=== PATIENT | female | born 1995 | race Two or more races ===

== ENCOUNTER 2016-05-02 23:09 | Inpatient (IN) | payer OTHER ==
[2016-05-02 23:49] LABS: Glucose,Whole Blood 142 mg/dL (75-99)
[2016-05-02 23:52] VITALS: BMI 30.7
[2016-05-02] MEDS ORDERED: OXYTOCIN 10 UNIT/ML 1 ML VIAL IM PRN (23:52)
[2016-05-02] MEDS ORDERED: METHYLERGONOVINE 0.2 MG/ML 1 ML AMP IM PRN (23:52)
[2016-05-02] MEDS ORDERED: LIDOCAINE 1% (PF) 10 MG/ML (30 ML SDV) SQ PRN (23:52)
[2016-05-02] MEDS ORDERED: CARBOPROST TROMETHAMINE 250 MCG/ML 1 ML AMP IM PRN (23:52)
[2016-05-02] MEDS ORDERED: TERBUTALINE 1 MG/ML VIAL SQ PRN (23:52)
[2016-05-03] MEDS ORDERED: AMPICILLIN 2,000 MG in SODIUM CHLORIDE 0.9% 100 ML IVPB STA (00:28)
[2016-05-03] MEDS ORDERED: OXYTOCIN 30 UNITS/500 ML NS 30 UNIT in SALINE 1 500ML.BAG IV SCH ×2 (00:30→07:20)
[2016-05-03] MEDS: LACTATED RINGERS 1,000 ML IV SCH ×2 (00:48→02:43)
[2016-05-03 00:57] LABS: Anisocytosis Slight; Basophils % (A) 0 %; CH 26.8; CHCM 32.6; Eosinophils # (A) 0.1 k/uL (0-0.7); Eosinophils % (A) 1 %; HCT 35.5 % (34.0-46.0); HDW 3.15; HGB 11.5 gm/dL (11.4-16.0); Hypochromasia Slight; Luc % (Auto) 3; Lymphocytes # (A) 1.9 k/uL (1.0-4.8); Lymphocytes % (A) 14 %; MCH 26.8 pg (25.0-35.0); MCHC 32.5 g/dL (31.0-37.0); MCV 82.5 fL (80.0-100.0); Mean Platelet Volume 8.4; Monocytes # (A) 0.9 k/uL (0-1.0); Monocytes % (A) 7 %; Neutrophils # (A) 9.9 k/uL (1.3-7.7); Neutrophils % (A) 75 %; RDW 16.9 % (11.5-15.5); WBC 13.2 k/uL (3.8-10.6); WBC (Perox) 13.34
[2016-05-03 01:42] LABS: Glucose,Whole Blood 95 mg/dL (75-99)
[2016-05-03 02:01] LABS: Hemoglobin A1C 6.4 % (4.2-6.1)
[2016-05-03] MEDS ORDERED: fentaNYL (PF) 50 MCG/ML 5 ML AMP ONE ×2 (02:15→06:29)
[2016-05-03] MEDS ORDERED: BUPIVACAINE (PF) 0.25% 30 ML VIAL ONE ×2 (02:15→06:29)
[2016-05-03] MEDS ORDERED: SODIUM CHLORIDE 0.9% 100 ML BAG ONE ×2 (02:15→06:29)
[2016-05-03] MEDS ORDERED: BUPIVACAINE (PF) 0.25% 25 ML, fentaNYL (PF) 200 MCG in SODIUM CHLORIDE 0.9% 71 ML EPIDURAL ONE (02:45)
[2016-05-03 03:35] LABS: Glucose,Whole Blood 151 mg/dL (75-99)
[2016-05-03] MEDS ORDERED: AMPICILLIN 1,000 MG in SODIUM CHLORIDE 0.9% 50 ML IVPB SCH (05:00)
[2016-05-03 05:14] LABS: Glucose,Whole Blood 135 mg/dL (75-99)
[2016-05-03] MEDS ORDERED: ceFAZolin 2 GM in SODIUM CHLORIDE 0.9% 100 ML IVPB ONE (05:59)
[2016-05-03] MEDS ORDERED: CITRIC ACID-SODIUM CITRATE 15 ML CUP PO ONE (05:59)
--- NOTE | 2016-05-03 06:13 | P.HPOB ---
History of Present Illness H&P Date: 05/03/16 Chief Complaint: Gush of fluid. This patient is a 20-year-old 1 para 0 female estimated date of confinement 05/11/2016 estimated gestational age 38 and 57 weeks gestation who is admitted last evening by Dr. Trent with complaints of gush of fluid at about 11 PM. Patient's care has been complicated by multiple issues including family history of fragile X syndrome and patient is seen maternal medicine and has a very high likelihood that this is affected. Patient also was diagnosed with gestational diabetes and has been followed by them as well. Patient has had polyhydramnios and questionable glucose control that has been diet regulated. Review of Systems Constitutional: Denies chills, Denies fever Cardiovascular: Denies chest pain, Denies shortness of breath Respiratory: Denies cough Gastrointestinal: Reports excessive gas, Denies abdominal pain, Denies diarrhea , Denies nausea, Denies vomiting Genitourinary: Reports as per HPI Menstruation: Reports amenorrhea Musculoskeletal: Denies myalgias Integumentary: Denies pruritus, Denies rash Neurological: Denies numbness, Denies weakness Psychiatric: Denies anxiety, Denies depression Endocrine: Denies fatigue, Denies weight change Past Medical History Past Medical History: No Reported History History of Any Multi-Drug Resistant Organisms: None Reported Past Surgical History: Appendectomy Additional Past Surgical History / Comment(s): appendectomy 07/30/2014 Past Anesthesia/Blood Transfusion Reactions: No Reported Reaction Past Psychological History: No Psychological Hx Reported Smoking Status: Never smoker Past Alcohol Use History: None Reported Past Drug Use History: None Reported - Past Family History Mother Additional Family Medical History / Comment(s): cancer Medications and Allergies Home Medications Medication Instructions Recorded Confirmed Type Iron 18 mg PO DAILY 05/02/16 05/02/16 History Pnv with Ca,No.72/Iron/FA 1 each PO DAILY 05/02/16 05/02/16 History [ Plus Tablet] Allergies Allergy/AdvReac Type Severity Reaction Status Date / Time No Known Allergies Allergy Verified 07/30/14 21:18 Exam - Vital Signs Vital signs: Intake and Output 05/02/16 05/02/16 05/03/16 14:59 22:59 06:59 Other: Weight 83.915 kg Patient Weight 05/03/16 06:59 Weight 83.915 kg - OBG Physical Exam Abdomen: bowel sounds normal, no diffuse tenderness, no bruit present, no guarding noted, no hepatomegaly, no splenomegaly, no mass Vulva: both: normal Vagina: normal moisture, no discharge Cervix: Cervix is 5 cm dilated. Uterus: enlarged Results Result Diagrams: 05/02/16 23:45 Abnormal Lab Results - Last 24 Hours (Table) 05/02/16 05/02/16 05/02/16 Range/Units 23:33 23:45 23:45 WBC 13.2 H (3.8-10.6) k/uL RDW 16.9 H (11.5-15.5) % Neutrophils # 9.9 H (1.3-7.7) k/uL POC Glucose (mg/dL) 142 H (75-99) mg/dL Hemoglobin A1c 6.4 H (4.2-6.1) % 05/03/16 05/03/16 Range/Units 03:33 05:12 WBC (3.8-10.6) k/uL RDW (11.5-15.5) % Neutrophils # (1.3-7.7) k/uL POC Glucose (mg/dL) 151 H 135 H (75-99) mg/dL Hemoglobin A1c (4.2-6.1) % Assessment and Plan (1) Spontaneous rupture of amniotic membranes Narrative/Plan: This is a 20-year-old 1 para 0 female 38-5/7 weeks' gestation with spontaneous rupture membranes. At this time patient's had no significant cervical change is having tachycardia to the 170s. Due to my concerns for status I recommended proceed with section at this time. Patient and mother understand and wish to proceed. She does understand the risks of the surgery including risks of infection, bleeding, possible injury bowel, bladder, vessels, and other organs. All the patient's questions are answered written consent is obtained. Status: Acute (2) Gestational diabetes Status: Acute (3) Carrier of fragile X syndrome Status: Acute
[2016-05-03] MEDS ORDERED: KETOROLAC 30 MG/ML 1 ML VIAL ONE (06:29)
[2016-05-03] MEDS ORDERED: OXYTOCIN 10 UNIT/ML 1 ML VIAL IM ONE (06:29)
[2016-05-03] MEDS ORDERED: HYDROmorphone (PF) 1 MG/ML ONE (06:29)
[2016-05-03] MEDS ORDERED: ONDANSETRON 4 MG/2 ML VIAL ONE (06:29)
[2016-05-03] MEDS ORDERED: KETOROLAC 30 MG/ML 1 ML VIAL IVP PRN (07:20)
[2016-05-03] MEDS ORDERED: LACTATED RINGERS 1,000 ML IV SCH (07:20)
[2016-05-03] MEDS ORDERED: NALOXONE 0.4 MG/ML 1 ML VIAL IV PRN (07:20)
[2016-05-03] MEDS ORDERED: diphenhydrAMINE 50 MG/ML 1 ML VIAL IVP PRN (07:20)
[2016-05-03] MEDS ORDERED: diphenhydrAMINE 25 MG CAP PO PRN (07:20)
[2016-05-03] MEDS ORDERED: METOCLOPRAMIDE 5 MG/ML 2 ML VIAL IVP PRN (07:20)
[2016-05-03] MEDS ORDERED: ACETAMINOPHEN TAB 325 MG TAB PO PRN (07:20)
[2016-05-03] MEDS ORDERED: ONDANSETRON 4 MG/2 ML VIAL IVP PRN (07:20)
[2016-05-03] MEDS ORDERED: ZOLPIDEM 5 MG TAB PO PRN (07:20)
--- NOTE | 2016-05-03 07:27 | P.OP ---
Date of Procedure: 05/03/16 Preoperative Diagnosis: #1: 38-5/7 weeks with spontaneous rupture membranes. #2: tachycardia remote from delivery. 3: Gestational diabetes. #4: Fragile X carrier Postoperative Diagnosis: #1: Same. #2: Occiput posterior presentation. #3: macrosomia. Procedure(s) Performed: Primary low transverse section Anesthesia: epidural Surgeon: Zan Valadez Medical Superintendent #1: Kristen Trent Estimated Blood Loss (ml): 800 Pathology: other (Placenta) Condition: stable Disposition: floor Indications for Procedure: Please see dictated H&P for intimate details of this patient's admission. In brief summary this is a 20-year-old 1 para 0 female 38-5/7 weeks gestation admitted last evening with spontaneous rupture membranes. Patient progresses to only 5 cm dilated and developed some tachycardia to 170s with some decreased variability. Send she is remote from delivery, I recommended proceed at this time with section. Patient does understand the surgery and risks including risks of infection, bleeding, possible injury to bowel, bladder, vessels, and other organs. She understands risk of DVT and pulmonary embolism. All the patient's questions are answered and a written consent is obtained. Operative Findings: This is a vigorous viable male infant Apgars 8 and 8 delivery time is 0646 hours. has spontaneous respirations and good cry and weight 9 lbs. 8 oz. Description of Procedure: This patient has a Beard catheter placed to straight drain. She is subsequently taken to the operating room where her epidural is dosed up for sufficient level of surgery. With this done she has abdominal prep and drape. Scalpels then taken and a Pfannenstiel skin incision is then made. A second scalpel is taken down to the fascia and the fascia scored with a knife. Fascial incision extended bilaterally using the Maguire scissors. Fascia is dissected off the rectus muscles sharply. The rectus muscles are and the peritoneum was identified and entered sharply. The peritoneal incision extended superior and inferior without difficulty. Bladder blade is then placed. Bladder peritoneum was taken off the lower uterine segment. Scalpels then taken and a low transverse uterine incision is made. Using a hemostat I bluntly entered the uterine cavity. There is loss of clear fluid. The infant is found to be straight occiput posterior presentation. The head is getting through the incision with fundal pressure delivery the anterior posterior shoulder and rest this infant's body. This is a vigorous viable male Apgars are 8 and 8 delivery time is 0646 hours. After delivery of the the umbilical cord is doubly clamped and cut and appears to be trivascular. The placenta is then manually extracted intact. Uterus is then externalized and excess membranes were removed from the uterine cavity. Uterine incision is then closed using 0 Vicryl running locked fashion 2 layers excellent hemostasis is noted. The bladder peritoneum was then reapproximated using a 3-0 Vicryl again good hemostasis is noted. Excess fluid is removed from the abdomen and pelvis. Uterus tubes and ovaries appear normal for term gestation. With this done the parietal peritoneum was closed using 0 Vicryl running fashion. Rectus muscles are reapproximated in 0 Vicryl interrupted fashion. The fascia is then closed using 0 PDS. Fascial incision is intact and hemostatic. Subcutaneous tissues and closed using a 3-0 Vicryl. Skin is and closed using joshua. All counts are correct 3. There are no complications. Infant and mother are taken to the birthing suite in satisfactory condition.
[2016-05-03] MEDS: HYDROmorphone PCA 5 MG/25 ML SYRINGE IV PRN ×2 (07:52→21:17)
[2016-05-03] MEDS: ceFAZolin 2 GM in SODIUM CHLORIDE 0.9% 100 ML IVPB SCH ×2 (15:00→22:30)
[2016-05-03] MEDS ORDERED: MEASLES-MUMPS-RUBELLA VACC/PF 12,500 UNIT/0.5 ML VIAL SQ ONE (15:25)
[2016-05-03] MEDS: SENNOSIDES-DOCUSATE SODIUM 1 EACH TAB PO SCH (21:34)
[2016-05-04 05:54] LABS: Anisocytosis Slight; Basophils % (A) 0 %; CH 26.7; CHCM 32.6; Eosinophils % (A) 0 %; HCT 21.7 % (34.0-46.0); Luc # (Auto) 0.32; Luc % (Auto) 2; Lymphocytes # (A) 1.9 k/uL (1.0-4.8); Lymphocytes % (A) 11 %; MCH 27.1 pg (25.0-35.0); MCHC 32.9 g/dL (31.0-37.0); MCV 82.4 fL (80.0-100.0); Mean Platelet Volume 9.2; Monocytes # (A) 0.7 k/uL (0-1.0); Monocytes % (A) 4 %; Neutrophils # (A) 13.8 k/uL (1.3-7.7); Neutrophils % (A) 82 %; RBC 2.63 m/uL (3.80-5.40); RDW 17.4 % (11.5-15.5); WBC 16.8 k/uL (3.8-10.6); WBC (Perox) 18.42
--- NOTE | 2016-05-04 05:59 | P.PNOBGPC ---
Subjective - Subjective Patient reports: Reports appetite normal, Reports voiding normally, Reports pain well controlled, Reports ambulating normally : doing well Objective - Vital Signs Latest vital signs: Vital Signs Temp Pulse Resp BP Pulse Ox 05/04/16 04:00 97.8 F 102 H 16 110/67 98 05/04/16 00:00 97.8 F 101 H 18 110/64 99 05/03/16 20:00 98.1 F 119 H 18 124/76 100 05/03/16 16:00 98.3 F 133 H 16 121/72 05/03/16 12:00 98.7 F 144 H 16 103/51 98 05/03/16 09:20 97 F L 112 H 16 109/55 05/03/16 08:50 129 H 16 112/54 05/03/16 08:20 95 16 117/57 95 05/03/16 08:05 112 H 16 105/68 95 05/03/16 07:50 122 H 16 102/53 97 05/03/16 07:35 113 H 16 97/53 97 05/03/16 07:20 98.6 F 113 H 15 106/48 98 Intake and Output 05/03/16 05/03/16 05/04/16 14:59 22:59 06:59 Intake Total 800 Output Total 200 800 Balance 800 -200 -800 Intake: Oral 800 Output: Urine 200 800 Uretheral (Beard) 150 Other: Voiding Method Indwelling Catheter # Voids 1 # Emeses 1 - Exam Lungs: bilateral: normal Chest: Normal S1, Normal S2 Extremities: Present: normal Abdomen: Present: normal appearance, soft. Absent: distention, tenderness Incision: Present: normal, dry, intact Uterus: Present: normal, firm Assessment and Plan (1) Spontaneous rupture of amniotic membranes Narrative/Plan: Post operative day #1. Patient is resting without new complaints. Vital signs are stable and she is afebrile. Uterus is firm nontender she's having normal lochia. Her incision is intact and dry. Plan today is to discontinue her MED ADMIN, check a CBC, encourage her to ambulate, allow her to shower, and advance her diet. It is evident from her hemoglobin A1c and blood sugars that most likely she was not controlling her blood sugars well during the . Current Visit: Yes Status: Acute Code(s): UPC5080 - SNOMED Code(s): 457582610 (2) Gestational diabetes Current Visit: Yes Status: Acute Code(s): O24.419 - GESTATIONAL DIABETES MELLITUS IN , UNSP CONTROL SNOMED Code(s): 52107649 (3) Carrier of fragile X syndrome Current Visit: Yes Status: Acute Code(s): Z14.8 - GENETIC CARRIER OF OTHER DISEASE SNOMED Code(s): 26588805
[2016-05-04 06:04] LABS: HGB 7.1 gm/dL (11.4-16.0)
[2016-05-04] MEDS: IBUPROFEN 600 MG TAB PO PRN ×2 (08:52→20:58)
[2016-05-04] MEDS: SENNOSIDES-DOCUSATE SODIUM 1 EACH TAB PO SCH ×3 (08:53→20:57)
[2016-05-04] MEDS ORDERED: KETOROLAC 30 MG/ML 1 ML VIAL IVP STA (13:52)
[2016-05-04] MEDS ORDERED: Acetaminophen-Codeine 300-30mg TAB PO PRN (14:32)
[2016-05-04] MEDS: IRON AG/C/B12/CA/SUC.ACID/STOM 1 EACH TAB PO SCH (17:15)
--- NOTE | 2016-05-05 05:43 | P.PNOBGPC ---
Subjective - Subjective Patient reports: Reports appetite normal, Reports voiding normally, Reports pain well controlled, Reports ambulating normally : in NICU Objective - Vital Signs Latest vital signs: Vital Signs Temp Pulse Resp BP Pulse Ox 05/04/16 23:08 99.1 F 122 H 16 118/72 98 05/04/16 15:35 98.6 F 68 17 127/72 05/04/16 08:00 98.0 F 126 H 16 115/62 98 Intake and Output 05/04/16 05/04/16 05/05/16 14:59 22:59 06:59 Other: # Voids 1 2 - Exam Lungs: bilateral: normal Chest: Normal S1, Normal S2 Extremities: Present: normal Abdomen: Present: normal appearance, soft. Absent: distention, tenderness Incision: Present: normal, dry, intact Uterus: Present: normal, firm - Labs Labs: Abnormal Lab Results - Last 24 Hours (Table) 05/04/16 Range/Units 05:39 WBC 16.8 H (3.8-10.6) k/uL RBC 2.63 L (3.80-5.40) m/uL Hgb 7.1 L D (11.4-16.0) gm/dL Hct 21.7 L (34.0-46.0) % RDW 17.4 H (11.5-15.5) % Neutrophils # 13.8 H (1.3-7.7) k/uL Assessment and Plan (1) Spontaneous rupture of amniotic membranes Narrative/Plan: Post operative day #2. Patient is resting without new complaints. Vital signs are stable and she is afebrile. CBC yesterday showed a hemoglobin of 7.1 which was expected. Patient's hemoglobin A1c came back at 6.4 as well and I did discuss my concerns about her glucose control during the she acknowledged that indeed she did have some abnormal glucoses although her log did not reflect this. Plan today is to continue routine postoperative care. I am going to repeat a CBC. Encourage ambulation. Current Visit: Yes Status: Acute Code(s): EDX9587 - SNOMED Code(s): 386186907 (2) Gestational diabetes Current Visit: Yes Status: Acute Code(s): O24.419 - GESTATIONAL DIABETES MELLITUS IN , UNSP CONTROL SNOMED Code(s): 15423148 (3) Carrier of fragile X syndrome Current Visit: Yes Status: Acute Code(s): Z14.8 - GENETIC CARRIER OF OTHER DISEASE SNOMED Code(s): 25656965
[2016-05-05 06:07] LABS: Anisocytosis Slight; Basophils # (A) 0.1 k/uL (0-0.2); Basophils % (A) 0 %; CH 26.8; CHCM 32.5; Eosinophils # (A) 0.1 k/uL (0-0.7); Eosinophils % (A) 1 %; HCT 22.3 % (34.0-46.0); HDW 3.07; HGB 7.2 gm/dL (11.4-16.0); Luc # (Auto) 0.43; Luc % (Auto) 3; Lymphocytes # (A) 2.2 k/uL (1.0-4.8); Lymphocytes % (A) 13 %; MCH 26.6 pg (25.0-35.0); MCHC 32.1 g/dL (31.0-37.0); MCV 82.8 fL (80.0-100.0); Monocytes # (A) 0.8 k/uL (0-1.0); Monocytes % (A) 5 %; Neutrophils # (A) 13.1 k/uL (1.3-7.7); Neutrophils % (A) 79 %; RBC 2.69 m/uL (3.80-5.40); RDW 17.5 % (11.5-15.5); WBC 16.7 k/uL (3.8-10.6); WBC (Perox) 16.98
[2016-05-05] MEDS: IBUPROFEN 600 MG TAB PO PRN ×2 (08:08→20:10)
[2016-05-05] MEDS: SENNOSIDES-DOCUSATE SODIUM 1 EACH TAB PO SCH ×2 (08:09→20:42)
[2016-05-05] MEDS: Acetaminophen-Codeine 300-30mg TAB PO PRN (10:27)
[2016-05-05] MEDS: IRON AG/C/B12/CA/SUC.ACID/STOM 1 EACH TAB PO SCH ×2 (16:44→20:42)
[2016-05-06] MEDS: Acetaminophen-Codeine 300-30mg TAB PO PRN (05:53)
[2016-05-06] MEDS: SENNOSIDES-DOCUSATE SODIUM 1 EACH TAB PO SCH ×2 (08:14→21:18)
--- NOTE | 2016-05-06 08:52 | P.PNOBGPC ---
Subjective - Subjective Patient reports: Reports appetite normal, Reports voiding normally, Reports pain well controlled, Reports ambulating normally [place]: doing well, in NICU Objective - Vital Signs Latest vital signs: Vital Signs Temp Pulse Resp BP Pulse Ox 05/06/16 04:00 98.7 F 127 H 18 130/61 99 05/05/16 20:37 98.7 F 122 H 18 128/68 98 05/05/16 15:35 98.2 F 106 H 16 114/69 Intake and Output 05/05/16 05/06/16 05/06/16 22:59 06:59 14:59 Other: # Voids 1 1 # Bowel Movements 2 - Exam Lungs: bilateral: normal Chest: Normal S1, Normal S2 Extremities: Present: normal Abdomen: Present: normal appearance, soft. Absent: distention, tenderness Incision: Present: normal, dry, intact Uterus: Present: normal, firm Assessment and Plan (1) Spontaneous rupture of amniotic membranes Narrative/Plan: This is postoperative day #3. Patient is resting without complaints. Vital signs are stable and she is afebrile. Uterus is firm nontender and her incision is intact and dry. Patient's hemoglobin is stable. Patient's baby is still in special care and therefore wishes to stay another day. Plan is to continue routine postoperative care and we'll discharge home tomorrow. Current Visit: Yes Status: Acute Code(s): QBD5535 - SNOMED Code(s): 909568428 (2) Gestational diabetes Current Visit: Yes Status: Acute Code(s): O24.419 - GESTATIONAL DIABETES MELLITUS IN , UNSP CONTROL SNOMED Code(s): 03471955 (3) Carrier of fragile X syndrome Current Visit: Yes Status: Acute Code(s): Z14.8 - GENETIC CARRIER OF OTHER DISEASE SNOMED Code(s): 75774673
[2016-05-06] MEDS: IRON AG/C/B12/CA/SUC.ACID/STOM 1 EACH TAB PO SCH (15:02)
[2016-05-06] MEDS: IBUPROFEN 600 MG TAB PO PRN (21:16)
--- NOTE | 2016-05-07 07:00 | P.PNOBGPC ---
Subjective - Subjective Patient reports: Reports appetite normal, Reports voiding normally, Reports pain well controlled, Reports ambulating normally : doing well, in NICU Objective - Vital Signs Latest vital signs: Vital Signs Temp Pulse Resp BP Pulse Ox 05/07/16 00:00 97.6 F 96 16 117/68 98 05/06/16 16:00 98.4 F 130 H 20 122/67 97 05/06/16 08:00 98.6 F 116 H 20 111/61 95 - Exam Lungs: bilateral: normal Chest: Normal S1, Normal S2 Extremities: Present: normal Abdomen: Present: normal appearance, soft. Absent: distention, tenderness Incision: Present: normal, dry, intact Uterus: Present: normal, firm Assessment and Plan (1) Spontaneous rupture of amniotic membranes Narrative/Plan: Postoperative day #4. Patient is resting without complaints. Vital signs are stable she is afebrile. Incision is intact and dry. My impression is a normal postoperative course. Plan is discharge home today and follow up with me in 1 week. Current Visit: Yes Status: Acute Code(s): IOU8819 - SNOMED Code(s): 124437675 (2) Gestational diabetes Current Visit: Yes Status: Acute Code(s): O24.419 - GESTATIONAL DIABETES MELLITUS IN , UNSP CONTROL SNOMED Code(s): 97482149 (3) Carrier of fragile X syndrome Current Visit: Yes Status: Acute Code(s): Z14.8 - GENETIC CARRIER OF OTHER DISEASE SNOMED Code(s): 34823860
--- NOTE | 2016-05-07 07:01 | P.DS ---
Providers Date of admission: 05/02/16 23:15 Expected date of discharge: 05/07/16 Attending physician: Zan Valadez Primary care physician: Stated None - Discharge Diagnosis(es) (1) Spontaneous rupture of amniotic membranes Current Visit: Yes Status: Acute (2) Gestational diabetes Current Visit: Yes Status: Acute (3) Carrier of fragile X syndrome Current Visit: Yes Status: Acute Hospital Course: Please see dictated H&P for intimate details of this patient's admission. Brief summary this is a pleasant 20-year-old 1 para 0 female 38-5/7 weeks gestation admitted to labor and delivery with spontaneous rupture membranes. Patient's subsequent undergoes a primary low transverse section for viable male infant please see dictated operative note. Postoperatively the patient does have some postoperative anemia however this response to iron therapy. By postoperative day #4 she is felt be stable for discharge home follow up with me in 1 week. Procedures: Primary low transverse section Patient Condition at Discharge: Good Plan - Discharge Summary New Discharge Prescriptions: Acetaminophen-Codeine 300-30mg [Tylenol w/codeine #3] 1 - 2 each PO Q4HR PRN # 40 tab PRN Reason: MODERATE Pain Ibuprofen [Motrin] 600 mg PO Q6HR PRN #40 tab PRN Reason: Mild Pain Or Fever >= 100.5 Iron Ag/C/B12/Ca/Suc.acid/Stom [Chromagen LF] 1 each PO DAILY #30 tab Discharge Medication List Iron 18 mg PO DAILY 05/02/16 [History] Pnv with Ca,No.72/Iron/FA [ Plus Tablet] 1 each PO DAILY 05/02/16 [ History] Acetaminophen-Codeine 300-30mg [Tylenol w/codeine #3] 1 - 2 each PO Q4HR PRN # 40 tab 05/07/16 [Rx] Ibuprofen [Motrin] 600 mg PO Q6HR PRN #40 tab 05/07/16 [Rx] Iron Ag/C/B12/Ca/Suc.acid/Stom [Chromagen LF] 1 each PO DAILY #30 tab 05/07/16 [ Rx] Follow up Appointment(s)/Referral(s): Zan Valadez MD [STAFF PHYSICIAN] - 05/10/16 1:30 pm (Patient also has a appointment on June 22 a 9:15 am.) Patient Instructions/Handouts: (DC) Activity/Diet/Wound Care/Special Instructions: No intercourse or anything per vagina for 6 weeks. No strenous activity or lifting for 6 weeks. Please call if any fever, chills, excessive vaginal bleeding and/or abdominal pain. Discharge Disposition: HOME SELF-CARE
[2016-05-07] MEDS: Acetaminophen-Codeine 300-30mg TAB PO PRN (08:44)
[2016-05-07] MEDS: IRON AG/C/B12/CA/SUC.ACID/STOM 1 EACH TAB PO SCH (08:45)
[2016-05-07] MEDS: SENNOSIDES-DOCUSATE SODIUM 1 EACH TAB PO SCH (08:45)
[2016-05-07 08:49] VITALS: BP 120/72; PULSE 104; RESP 20; TEMP 98.4
== END 2016-05-07 15:05 | disposition home or self-care (01) | DRG 766 ==
LOC: FBPOP 23:09 → 4FBP 23:15
PROVIDERS: ADMIT Obstetrics & Gynecology; ATTEND Obstetrics & Gynecology
PROC: 10D00Z1 Extraction of Products of Conception, Low, Open Approach (ICD-10-PCS; principal; 2016-05-02)
DX: O76 Abnormality in fetal heart rate and rhythm complicating labor and delivery (principal); O24.420 Gestational diabetes mellitus in childbirth, diet controlled; O90.81 Anemia of the puerperium; O36.63X0 Maternal care for excessive fetal growth, third trimester, not applicable or unspecified; Z3A.38 38 weeks gestation of pregnancy; Z37.0 Single live birth; Z14.8 Genetic carrier of other disease; Q99.2 Fragile X chromosome
CPT/HCPCS: 83036; 85025; 86850; 86900; 86901; 88307; 90707

== ENCOUNTER 2018-08-31 03:04 | Emergency (ER) | payer OTHER ==
[2018-08-31] MEDS ORDERED: MORPHINE SULFATE 4 MG/ML SYRINGE IM STA (03:26)
--- NOTE | 2018-08-31 04:12 | ED ---
Fall HPI - General Chief Complaint: Fall Stated Complaint: Fall/Wrist Pain Time Seen by Provider: 08/31/18 03:19 Source: patient, family Mode of arrival: ambulatory - History of Present Illness Initial Comments: 23-year-old female patient presents to the emergency department today for evaluation of left elbow and wrist pain after experiencing a fall. Patient states around 1900 this evening she was walking her dog when her dog tripped her up and she fell backwards landing on the arm. Patient denies hitting her head or losing consciousness. Denies any other injuries. Patient states she has been having significant pain to the left elbow and difficulty with range of motion since the incident. Patient states she did take ibuprofen with little relief of her pain. She denies any previous injury to the elbow. Patient denies any headache, neck pain, back pain, chest pain, shortness of breath, dizziness, weakness, abdominal pain, nausea, vomiting, or difficulties with bowel movements or urination. - Related Data Home Medications Medication Instructions Recorded Confirmed Norethindrone AC-Eth Estradiol 1 tab PO DAILY 08/31/18 08/31/18 [Loestrin 21 1-20 Tablet] Previous Rx's Medication Instructions Recorded Ibuprofen [Motrin] 600 mg PO Q6HR PRN #40 tab 05/07/16 Hydrocodone/Acetaminophen [Prichard 1 tab PO Q6HR PRN #12 tab 08/31/18 5-325] Allergies Allergy/AdvReac Type Severity Reaction Status Date / Time No Known Allergies Allergy Verified 07/30/14 21:18 Review of Systems ROS Statement: Those systems with pertinent positive or pertinent negative responses have been documented in the HPI. ROS Other: All systems not noted in ROS Statement are negative. Past Medical History Past Medical History: No Reported History History of Any Multi-Drug Resistant Organisms: None Reported Past Surgical History: Appendectomy, Section Additional Past Surgical History / Comment(s): appendectomy 07/30/2014 2017 Past Anesthesia/Blood Transfusion Reactions: No Reported Reaction Past Psychological History: No Psychological Hx Reported Smoking Status: Never smoker Past Alcohol Use History: None Reported Past Drug Use History: None Reported - Past Family History Mother Additional Family Medical History / Comment(s): cancer General Exam Limitations: no limitations General appearance: alert, in no apparent distress, other (This is a well- developed, well-nourished adult female patient in no acute distress. Vital signs upon presentation are temperature 97.8F, pulse 133, respirations 19, blood pressure 117/80, pulse ox 99% on room air.) Eye exam: Present: normal appearance, PERRL, EOMI. Absent: scleral icterus, conjunctival injection, periorbital swelling ENT exam: Present: normal exam, normal oropharynx, mucous membranes moist Respiratory exam: Present: normal lung sounds bilaterally. Absent: respiratory distress, wheezes, rales, rhonchi, stridor Cardiovascular Exam: Present: regular rate, normal rhythm, normal heart sounds. Absent: systolic murmur, diastolic murmur, rubs, gallop, clicks GI/Abdominal exam: Present: soft, normal bowel sounds. Absent: distended, tende rness, guarding, rebound, rigid Extremities exam: Present: full ROM, tenderness (Left wrist, left elbow), normal capillary refill, other (Patient exhibits soft tissue swelling over the posterior left elbow. Skin to the left upper extremity is pink, warm, and dry. Cap refills less than 3 seconds. Radial pulses 2+ and equal bilaterally). Absent: normal inspection, pedal edema, joint swelling, calf tenderness Neurological exam: Present: alert, oriented X3, CN II-XII intact Psychiatric exam: Present: normal affect, normal mood Skin exam: Present: warm, dry, intact, normal color. Absent: rash Course Vital Signs 08/31/18 03:05 Temperature 97.8 F Pulse Rate 133 H Respiratory 19 Rate Blood Pressure 117/80 O2 Sat by Pulse 99 Oximetry Procedures - Orthopedic Splinting/Casting Injury #1 Side: left Upper Extremity Injury Location: long arm Upper Extremity Immobilizer: posterior splint, Jv wrap Additional Comments: Well padded with web roll. Neurovascular status intact after splint application. Medical Decision Making - Medical Decision Making 23-year-old female patient presents to the emergency department today for evaluation of left elbow injury after experiencing a fall at home. Physical examination did reveal soft tissue swelling over the dorsal aspect of the left elbow. Neurovascular status is intact. Radial pulses 2+ and equal bilaterally. X-ray of the left wrist was obtained and showed no evidence of acute fracture. X-ray of the left elbow did show a mildly displaced radial head fracture with a large joint effusion. Patient was placed in an OCL splint. Neurovascular status intact after splint application. She is given a sling. She is instructed to leave splint in place until follow-up with orthopedics. She is given pain medication for symptom management. She is instructed to follow-up with denial resolution specialist for recheck in 1-2 days. Return parameters discussed in detail. She verbalizes understanding and agrees with this plan. - Radiology Data Radiology results: report reviewed, image reviewed 3 views of the left wrist are obtained. Report is reviewed in its entirety. Impression by Dr. Santos shows no acute findings. Left elbow x-rays obtained. Report was reviewed in its entirety. Impression by Dr. Watkins shows large joint effusion. Slightly displaced radial head/neck fracture. Disposition Clinical Impression: Left radial head fracture Disposition: HOME SELF-CARE Condition: Good Instructions (If sedation given, give patient instructions): Elbow Fracture (ED), Splint Care (ED) Additional Instructions: Ice to the left elbow 20 minutes at a time at least 4 times daily. Take medications as directed. Do not remove splint until follow-up with denial resolution specialist. Return to the emergency department for any new, worsening, or concerning symptoms. Prescriptions: Hydrocodone/Acetaminophen [Prichard 5-325] 1 tab PO Q6HR PRN #12 tab PRN Reason: Pain Is patient prescribed a controlled substance at d/c from ED?: Yes When asked, does pt state using other controlled substances?: No If prescribed controlled substance>3 days was MAPS reviewed?: Prescribed <3 Days If opioid is for acute pain is fill amount 7 days or less?: Yes Referrals: Miguel Angel Flores DO [Medical Doctor] - 1-2 days Time of Disposition: 04:36
--- NOTE | 2018-08-31 04:18 | XR ---
EXAM: XR Left Wrist Complete, 3 or More Views CLINICAL HISTORY: ITS.REASON XR Reason: Pain TECHNIQUE: Frontal, lateral and oblique views of the left wrist. COMPARISON: No relevant prior studies available. FINDINGS: Bones/joints: No acute fracture. No dislocation. Soft tissues: Unremarkable. No radiopaque foreign body. IMPRESSION: No acute findings.
--- NOTE | 2018-08-31 04:20 | XR ---
EXAM: XR Left Elbow Complete, 3 or More Views CLINICAL HISTORY: ITS.REASON XR Reason: Pain TECHNIQUE: Frontal, lateral and oblique views of the left elbow. COMPARISON: No relevant prior studies available. FINDINGS: Bones/joints: Large joint effusion. Slightly displaced radial head/neck fracture. No dislocation. Soft tissues: Unremarkable. IMPRESSION: 1. Large joint effusion. 2. Slightly displaced radial head/neck fracture.
[2018-08-31] MEDS ORDERED: HYDROcodone/APAP 5-325MG 1 EACH TAB PO STA (04:33)
[2018-08-31 04:44] VITALS: BP 121/83; PULSE 98; RESP 18; TEMP 98
== END 2018-08-31 05:16 | disposition home or self-care (01) ==
LOC: EC 03:04
DX: S52.122A Displaced fracture of head of left radius, initial encounter for closed fracture (principal); Z79.3 Long term (current) use of hormonal contraceptives; W01.0XXA Fall on same level from slipping, tripping and stumbling without subsequent striking against object, initial encounter; Y93.K1 Activity, walking an animal
CPT/HCPCS: 73080; 73110; 99283; 29105; 96372; J2270

== ENCOUNTER 2018-09-16 15:07 | Emergency (ER) | payer OTHER ==
[2018-09-16 15:49] VITALS: BP 124/88; PULSE 94; RESP 16; TEMP 97.8
--- NOTE | 2018-09-16 16:12 | ED ---
Fall HPI - General Chief Complaint: Fall Stated Complaint: Ankle Injury Time Seen by Provider: 09/16/18 15:53 Source: patient Mode of arrival: wheelchair - History of Present Illness Initial Comments: 23yo female presenting for fall ar 2PM today. Patient was attempting to catch her cat from running out the door when she injudged a step off and fell onto the porch twisting the right ankle. Patient denies head, neck, back, arm, abdomen injury. Denies hip or knee pain. Patient states the right ankle is swollen and painful to ROM. Remaining ROS (-), denies numbness, tingling, loss of sensation of pallor, denies dislocation. - Related Data Home Medications Medication Instructions Recorded Confirmed Norethindrone AC-Eth Estradiol 1 tab PO DAILY 08/31/18 08/31/18 [Loestrin 21 1-20 Tablet] Previous Rx's Medication Instructions Recorded Ibuprofen [Motrin] 600 mg PO Q6HR PRN #40 tab 05/07/16 Hydrocodone/Acetaminophen [[place] 1 tab PO Q6HR PRN #12 tab 08/31/18 5-325] Ibuprofen 800 mg PO Q8H PRN 7 Days #21 tablet 09/16/18 Allergies Allergy/AdvReac Type Severity Reaction Status Date / Time No Known Allergies Allergy Verified 09/16/18 15:49 Review of Systems ROS Statement: Those systems with pertinent positive or pertinent negative responses have been documented in the HPI. ROS Other: All systems not noted in ROS Statement are negative. Past Medical History Past Medical History: No Reported History History of Any Multi-Drug Resistant Organisms: None Reported Past Surgical History: Appendectomy, Section Additional Past Surgical History / Comment(s): appendectomy 07/30/2014 2017 Past Anesthesia/Blood Transfusion Reactions: No Reported Reaction Past Psychological History: No Psychological Hx Reported Smoking Status: Never smoker Past Alcohol Use History: None Reported Past Drug Use History: None Reported - Past Family History Mother Additional Family Medical History / Comment(s): cancer General Exam - General Exam Comments Initial Comments: General: The patient is awake and alert, in no distress, and does not appear acutely ill. Eye: Pupils are equal, round and reactive to light, extra-ocular movements are intact. No nystagmus. There is normal conjunctiva bilaterally. No signs of icterus. Ears, nose, mouth and throat: There are moist mucous membranes and no oral lesions. Neck: The neck is supple, there is no tenderness or JVD. Cardiovascular: There is a regular rate and rhythm. No murmur, rub or gallop is appreciated. Respiratory: Lungs are clear to auscultation, respirations are non-labored, breath sounds are equal. No wheezes, stridor, rales, or rhonchi. Musculoskeletal: Upon inspection of the ankles bilaterally or soft tissue swelling over the lateral malleolus of the right ankle. Normal ROM in the knee, ankles and feet b/l. Pain wit ROM of right ankle. Strength 5/5. Sensation intact proximal and distal to injury site. DP pulses equal bilaterally 2+. Neurological: A&O x 3. CN II-XII intact, There are no obvious motor or sensory deficits. Coordination appears grossly intact. Speech is normal. Skin: Skin is warm and dry and no rashes or lesions are noted. Psychiatric: Cooperative, appropriate mood & affect, normal judgment. Limitations: no limitations Course Vital Signs 09/16/18 15:47 Temperature 97.8 F Pulse Rate 94 Respiratory 16 Rate Blood Pressure 124/88 O2 Sat by Pulse 96 Oximetry Medical Decision Making - Medical Decision Making 23-year-old female presented for right ankle pain. Evidence of soft tissue swelling. History concerning for sprain. Neurovascularly intact. XR revealed no acute osseous injury. Patient placed in [facility]'s. For ankle support with concern for sprain. Patient is to follow-up primary care provider if symptoms persist she is to follow up with orthopedic surgery. Recommend patient use crutches for comfort. Rest ice elevate and compress ankle. Take ibuprofen for pain. Return parameters were discussed patient verbalized understanding. Patient was discharged. Will Disposition Clinical Impression: Right ankle sprain, Right ankle pain Disposition: HOME SELF-CARE Condition: Good Instructions (If sedation given, give patient instructions): Ankle Sprain (ED), R.I.C.E. Treatment (ED) Additional Instructions: Please use medication as discussed. Please follow-up with family doctor in the next 2 days, f/u as scheduled with Argelia Calderón on Sunday. Use crutches for comfort. Please return to emergency room if the symptoms increase or worsen or for any other concerns. Prescriptions: Ibuprofen 800 mg PO Q8H PRN 7 Days #21 tablet PRN Reason: Pain Is patient prescribed a controlled substance at d/c from ED?: No Referrals: None,Stated [Primary Care Provider] - 1-2 days Time of Disposition: 16:23
--- NOTE | 2018-09-16 16:26 | XR ---
EXAMINATION TYPE: XR ankle complete RT DATE OF EXAM: 09/16/2018 COMPARISON: None HISTORY: Pain following fall TECHNIQUE: Three-view right ankle FINDINGS: There is soft tissue swelling over the lateral malleolus. The ankle mortise is intact. No a cute displaced fractures are evident. Follow-up studies can be performed 7-10 days from acute trauma for continued pain. IMPRESSION: 1. Soft tissue swelling lateral malleolus. 2. No acute fractures.
== END 2018-09-16 16:44 | disposition home or self-care (01) ==
LOC: EC 15:07
DX: S93.401A Sprain of unspecified ligament of right ankle, initial encounter (principal); W19.XXXA Unspecified fall, initial encounter
CPT/HCPCS: 73610; 99283; 29515; L4350

== ENCOUNTER → 2022-01-09 | Outpatient (CLI) | payer OTHER ==
--- NOTE | 2022-01-10 10:12 | US ---
EXAMINATION TYPE: Transabdominal DATE OF EXAM: 01/09/2022 4:01 PM COMPARISON: NONE CLINICAL HISTORY: Z39.89 OTHER SPECIFIED SCREENING. EXAM PERFORMED: Transabdominal (TA) EXAM MEASUREMENTS: GESTATIONAL AGE / DATING Physician Established: Not yet established Dates by LMP: (10 weeks/4 days) EDC: 08-03-22 Dates by First Scan: No previous this is first scan Dates by Current Scan for: (11 weeks/1 days) EDC: 07-30-22 MATERNAL ANATOMY Uterus: 14.9 x 6.2 x 3.1cm Fibroid measuring 4.0 x 2.8 x 3.6cm Right Ovary: 3.1 x 1.7 x 2.2cm Left Ovary: 3.1 x 2.0 2.1cm Post CDS / Adnexa: wnl Presence of free fluid: no Presence of probable subchorionic bleed measuring 1.2 x 0.5 x 1.3cm GESTATION / SURVEY CRL: 4.4cm (11 weeks/1 days) Yolk Sac (normal less than 6mm): not visualized Heart Rate: 155 bpm Rhythm: Normal IUP: Viable IUP Age Appropriate Anatomy Cord Insertion: Visualized Limbs: Visualized Calvarium: Visualized Date of LMP: 10-27-21 Beta HcG (if available): Not available at this time IMPRESSION: 1. Single intrauterine gestation estimated at 11 weeks 1 day gestation based on crown-rump length. Ca rdiac activity measures 155 bpm. 2. Subchorionic hemorrhage. 3. Uterine fibroid anterior fundus of the uterus.
== END | disposition home or self-care (01) ==
LOC: RADUSWWP 15:30
PROVIDERS: ATTEND Obstetrics & Gynecology
DX: O20.8 Other hemorrhage in early pregnancy (principal); O34.11 Maternal care for benign tumor of corpus uteri, first trimester; Z3A.11 11 weeks gestation of pregnancy
CPT/HCPCS: 76801

== ENCOUNTER 2022-07-28 05:47 | Inpatient (IN) | payer OTHER ==
--- NOTE | 2022-07-27 06:48 | P.HPOB ---
History of Present Illness H&P Date: 07/27/22 Chief Complaint: Repeat section This patient is a pleasant 26-year-old 2 para 1 female estimated date of confinement 08/03/2022 estimated gestational age 39 and one sevenths weeks who presents to labor and delivery requesting repeat section. Patient had a previous section for nonreassuring heart tones and has counseled as to route of delivery and requests section for this . Patient's care is complicated by the patient being a carrier of Fragile X. She was referred to maternal- medicine and did have normal cell free DNA (46XX). Patient did have a previous child that is male and has the chromosomes well. Patient has a history of gestational diabetes did fail her 1 hour Glucola. She was managed by maternal medicine third trimester the decided she was not a gestational diabetic. Patient's been watched by maternal medicine and myself with testing. Most recent ultrasound per maternal medicine did show some right renal pelvis dilation that was mild of 7.7 mm. No other abnormalities were noted. Review of Systems Genitourinary: Reports Menstruation: Reports amenorrhea Past Medical History Past Medical History: No Reported History History of Any Multi-Drug Resistant Organisms: None Reported Past Surgical History: Appendectomy, Section Additional Past Surgical History / Comment(s): appendectomy 07/30/2014 2017 Past Anesthesia/Blood Transfusion Reactions: No Reported Reaction Past Psychological History: No Psychological Hx Reported Smoking Status: Never smoker Past Alcohol Use History: None Reported Past Drug Use History: None Reported - Past Family History Mother Additional Family Medical History / Comment(s): cancer Medications and Allergies Allergies Allergy/AdvReac Type Severity Reaction Status Date / Time No Known Allergies Allergy Verified 09/16/18 15:49 Exam - OBG Physical Exam Abdomen: bowel sounds normal, no diffuse tenderness, no bruit present, no guarding noted, no hepatomegaly, no splenomegaly, no mass Vulva: both: normal Vagina: normal moisture, no discharge Cervix: no lesion, no discharge Uterus: enlarged Results labs show she is B positive, rubella immune, RPR nonreactive, hepatitis B nonreactive HIV is nonreactive, Glucola was 176, group B strep was negative, ultrasounds as above. Assessment and Plan Assessment: This is a pleasant 26-year-old 2 para para 1 female 39 and one sevenths weeks gestation with previous section desires repeat. Patient also is a carrier for fragile X syndrome. Will plan is repeat low transverse section. Patient understands this surgery and risks and risks of infection, bleeding, possible injury bowel, bladder, vessels, and other organs. All the patient's questions are answered and a written consent is obtained. (1) 39 weeks gestation of Status: Acute Code(s): Z3A.39 - 39 WEEKS GESTATION OF SNOMED Code(s): 46140494 (2) Previous delivery affecting Status: Acute Code(s): O34.219 - MATERNAL CARE FOR UNSP TYPE SCAR FROM PREVIOUS DEL SNOMED Code(s): 830180152 (3) Carrier of fragile X syndrome Status: Acute Code(s): Z14.8 - GENETIC CARRIER OF OTHER DISEASE SNOMED Code(s): 69858515
[2022-07-28] MEDS ORDERED: CARBOPROST TROMETHAMINE 250 MCG/ML 1 ML AMP IM PRN (05:53)
[2022-07-28] MEDS ORDERED: OXYTOCIN 10 UNIT/ML 1 ML VIAL IM PRN (05:53)
[2022-07-28] MEDS ORDERED: LACTATED RINGERS 1,000 ML IV ONE (05:53)
[2022-07-28] MEDS ORDERED: CITRIC ACID-SODIUM CITRATE 15 ML CUP PO ONE (05:53)
[2022-07-28] MEDS ORDERED: METHYLERGONOVINE 0.2 MG/ML 1 ML AMP IM PRN (05:53)
[2022-07-28] MEDS ORDERED: LACTATED RINGERS 1,000 ML IV SCH (05:53)
[2022-07-28] MEDS ORDERED: TRANEXAMIC ACID IN NACL,ISO-OS 1,000 MG in EMPTY BAG 1 BAG IV PRN (05:53)
[2022-07-28] MEDS ORDERED: miSOPROStoL 200 MCG TAB PO PRN (05:53)
[2022-07-28 06:42] LABS: Anisocytosis Slight; Basophils # (A) 0.1 k/uL (0-0.2); Basophils % (A) 0 %; Eosinophils # (A) 0.1 k/uL (0-0.7); Eosinophils % (A) 1 %; HCT 29.9 % (34.0-46.0); HGB 9.7 gm/dL (11.4-16.0); Hypochromasia Moderate; Lymphocytes % (A) 19 %; MCH 24.6 pg (25.0-35.0); MCHC 32.6 g/dL (31.0-37.0); MCV 75.5 fL (80.0-100.0); Mean Platelet Volume 9.4; Microcytosis Slight; Monocytes # (A) 1.1 k/uL (0-1.0); Monocytes % (A) 7 %; Neutrophils # (A) 11.2 k/uL (1.3-7.7); Neutrophils % (A) 71 %; Platelet Count 298 k/uL (150-450); Poikilocytosis Slight; RBC 3.96 m/uL (3.80-5.40); RDW 16.7 % (11.5-15.5); WBC 15.8 k/uL (3.8-10.6)
[2022-07-28] MEDS ORDERED: ONDANSETRON 4 MG/2 ML VIAL ONE (07:50)
[2022-07-28] MEDS ORDERED: PHENYLEPHRINE-0.9% NACL SYG 1,000 MCG/10 ML SYRINGE ONE (07:50)
[2022-07-28] MEDS ORDERED: KETOROLAC 15 MG/ML 1 ML VIAL ONE (07:50)
[2022-07-28] MEDS ORDERED: OXYTOCIN 30 UNITS/500 ML NS BAG IV ONE (07:50)
[2022-07-28] MEDS ORDERED: MORPHINE SULFATE (PF) 0.3 MG/0.3 ML SYR ONE (07:50)
--- NOTE | 2022-07-28 08:42 | P.OP ---
Date of Procedure: 07/28/22 Preoperative Diagnosis: #1: 39 and one sevenths weeks intrauterine . #2: Previous section desires repeat. #3: Carrier of fragile X Postoperative Diagnosis: Same Procedure(s) Performed: Repeat low transverse section Anesthesia: spinal Surgeon: Zan Valadez Hydraulic Lift Driver #1: Deyanira Weaver Estimated Blood Loss (ml): 600 Pathology: other (Placenta) Condition: stable Disposition: floor Indications for Procedure: Please see dictated H&P for intimate details of this patient's admission. In brief summary is a pleasant 26-year-old 2 para 1 female 39 and one sevenths weeks gestation admitted to labor and delivery for repeat low transverse section. Patient understands this surgery and risks and risks of infection, bleeding, possible injury bowel, bladder, vessels, and/or other organs. All the patient's questions are answered written consent is obtained. Operative Findings: This is a vigorous viable female infant Apgars 9 and 9 delivery time is 0808 hrs. has spontaneous respirations and good cry and grossly appears normal Description of Procedure: This patient has a Beard catheter placed to straight drain. She is subsequently taken to the operating room where she sat up and spinal anesthetic is placed without incident. After the appropriate timeout she has abdominal prep and drape. Scalpels and taken the previous Pfannenstiel incision is incised. A second scalpel is taken down the fascia and the fascia scored with a knife. Fascial incision extended bilaterally using the Maguire scissors. Fascia is then dissected off the rectus muscles sharply. Rectus muscles are the peritoneum identified and entered sharply. Peritoneal incision extended superior and inferior without difficulty. Bladder blade is then placed. Blad archana peritoneum was taken sharply off the lower uterine segment. Scalpels and taken low transverse uterine incision is made. Using a hemostat I into the uterine cavity bluntly and there is loss of clear fluid. This incision is extended bluntly and the infant's head is guided through the incision with fundal pressure mouth and nares are bulb suctioned. There is a nuchal cord 1. This is reduced. With more fundal pressure we have delivery the rest of this 's body. Is a vigorous viable female infant Apgars are 9 and 9 delivery time is 0808 hrs. Infant weighed 8 lbs. 11 oz. After delivery of the infant the umbilical cord is doubly clamped and cut. The placenta is then manually extracted intact. Uterus is then externalized and uterine incision then closed using 0 Vicryl running locked fashion 2 layers. Excellent hemostasis is noted. Bladder peritoneum was then reapproximated using a 3-0 Vicryl. Excess fluid is removed from the abdomen and pelvis. The uterus, tubes, ovaries appear normal for term gestation. Uterus placed back into the abdomen. The parietal peritoneum was then identified and closed using 0 Vicryl running fashion. The rectus muscles reapproximated in 0 Vicryl interrupted fashion. Fascia is then closed using 0 PDS. Fascial incision is intact and hemostatic. Subcutaneous tissues and closed using a 3-0 Vicryl. Skin is and closed using joshua. All counts are correct 3. There are no complications. will be watched in the nursery per protocol.
[2022-07-28] MEDS ORDERED: ZOLPIDEM 5 MG TAB PO PRN (08:48)
[2022-07-28] MEDS ORDERED: NALOXONE 0.4 MG/ML 1 ML VIAL IV PRN (08:48)
[2022-07-28] MEDS ORDERED: METOCLOPRAMIDE 5 MG/ML 2 ML VIAL IVP PRN (08:48)
[2022-07-28] MEDS ORDERED: LANOLIN CREAM 5 GM TUBE TOPICAL PRN (08:48)
[2022-07-28] MEDS ORDERED: OXYTOCIN 30 UNITS/500 ML NS 30 UNIT in SALINE 1 500ML.BAG IV SCH (08:48)
[2022-07-28] MEDS ORDERED: diphenhydrAMINE 25 MG CAP PO PRN (08:48)
[2022-07-28] MEDS ORDERED: diphenhydrAMINE 50 MG/ML 1 ML VIAL IVP PRN (08:48)
[2022-07-28] MEDS ORDERED: ONDANSETRON 4 MG/2 ML VIAL IVP PRN (08:48)
[2022-07-28] MEDS ORDERED: SIMETHICONE 80 MG CHEWABLE PO PRN (08:48)
[2022-07-28] MEDS: SENNOSIDES-DOCUSATE SODIUM 1 EACH TAB PO SCH ×2 (09:59→19:38)
[2022-07-28] MEDS: LACTATED RINGERS 1,000 ML IV SCH ×2 (10:13→17:54)
[2022-07-28] MEDS: ACETAMINOPHEN TAB 500 MG TAB PO SCH ×3 (13:20→19:37)
[2022-07-28] MEDS: IBUPROFEN 600 MG TAB PO SCH ×2 (14:35→19:18)
[2022-07-28] MEDS: KETOROLAC 15 MG/ML 1 ML VIAL IVP SCH ×2 (15:14→23:40)
[2022-07-29 00:13] VITALS: RESP 16
[2022-07-29] MEDS: IBUPROFEN 600 MG TAB PO SCH ×4 (00:15→19:29)
[2022-07-29] MEDS: LACTATED RINGERS 1,000 ML IV SCH ×2 (02:12→19:19)
[2022-07-29] MEDS: ACETAMINOPHEN TAB 500 MG TAB PO SCH ×4 (04:22→23:36)
[2022-07-29 06:05] LABS: Anisocytosis Slight; Basophils % (A) 0 %; Eosinophils # (A) 0.1 k/uL (0-0.7); Eosinophils % (A) 0 %; HCT 26.3 % (34.0-46.0); HGB 8.6 gm/dL (11.4-16.0); Hypochromasia Moderate; Lymphocytes # (A) 3.1 k/uL (1.0-4.8); Lymphocytes % (A) 17 %; MCH 24.4 pg (25.0-35.0); MCHC 32.5 g/dL (31.0-37.0); MCV 75.1 fL (80.0-100.0); Mean Platelet Volume 9.1; Microcytosis Slight; Monocytes # (A) 1.1 k/uL (0-1.0); Monocytes % (A) 6 %; Neutrophils # (A) 13.8 k/uL (1.3-7.7); Neutrophils % (A) 75 %; Platelet Count 245 k/uL (150-450); Poikilocytosis Slight; RBC 3.51 m/uL (3.80-5.40); RDW 16.8 % (11.5-15.5); WBC 18.5 k/uL (3.8-10.6)
[2022-07-29] MEDS: KETOROLAC 15 MG/ML 1 ML VIAL IVP SCH ×4 (06:20→19:23)
--- NOTE | 2022-07-29 07:06 | P.PN ---
Progress Note - Text Progress Note Date: 07/29/22 Postoperative day 1 status post section under spinal anesthesia, and intrathecal morphine given for postoperative analgesia, patient doing well, there is no anesthesia related complications, Patient had no headache, vital signs stable , Assessment and plan= postop day 1 status post , doing well there is no anesthesia related complication.
--- NOTE | 2022-07-29 08:52 | P.PNOBGPC ---
Subjective - Subjective Principal diagnosis: S/P RLTCS POD #1 Interval history: Patient seen and examined. Denies nausea, vomiting, chest pain, shortness of breath or calf pain. She has not voided on her own yet and has had to have a straight cath twice. Patient reports: Reports appetite normal, Reports pain well controlled, Reports ambulating normally [place]: doing well Objective - Vital Signs Latest vital signs: Vital Signs Temp Pulse Resp BP Pulse Ox 07/29/22 04:00 98.3 F 85 16 117/75 98 07/29/22 00:00 98.2 F 75 16 111/75 98 07/28/22 20:00 96.2 F L 85 18 117/75 98 07/28/22 16:00 98.7 F 98 16 113/71 96 07/28/22 12:00 98.7 F 105 H 16 128/71 98 07/28/22 10:41 103 H 16 113/66 07/28/22 10:11 96 16 123/75 98 07/28/22 09:41 96 16 110/68 99 07/28/22 09:26 109 H 16 117/76 99 07/28/22 09:11 97.8 F 120 H 16 123/76 99 07/28/22 08:56 113 H 16 127/72 98 Intake and Output 07/28/22 07/29/22 07/29/22 22:59 06:59 14:59 Intake Total 200 Output Total 200 1200 Balance 0 -1200 Intake: Oral 200 Output: Urine 200 1200 Uretheral (Beard) 1200 Other: # Voids 2 - Exam Lungs: bilateral: normal Chest: Normal S1, Normal S2 Extremities: Present: normal Abdomen: Present: normal appearance, soft. Absent: distention, tenderness Incision: Present: normal, dry, intact Uterus: Present: normal, firm - Labs Labs: Abnormal Lab Results - Last 24 Hours (Table) 07/29/22 Range/Units 05:25 WBC 18.5 H (3.8-10.6) k/uL RBC 3.51 L (3.80-5.40) m/uL Hgb 8.6 L (11.4-16.0) gm/dL Hct 26.3 L (34.0-46.0) % MCV 75.1 L (80.0-100.0) fL MCH 24.4 L (25.0-35.0) pg RDW 16.8 H (11.5-15.5) % Neutrophils # 13.8 H (1.3-7.7) k/uL Monocytes # 1.1 H (0-1.0) k/uL Assessment and Plan (1) Status post repeat low transverse section Current Visit: Yes Status: Acute Code(s): Z98.891 - HISTORY OF UTERINE SCAR FROM PREVIOUS SURGERY SNOMED Code(s): 417515327 Plan: 1. increase ambulation 2. po pain meds
[2022-07-29] MEDS: SENNOSIDES-DOCUSATE SODIUM 1 EACH TAB PO SCH ×2 (08:57→19:29)
[2022-07-30] MEDS: IBUPROFEN 600 MG TAB PO SCH (04:22)
[2022-07-30] MEDS: ACETAMINOPHEN TAB 500 MG TAB PO SCH (06:11)
[2022-07-30 08:12] VITALS: BP 105/69; PULSE 92; TEMP 98
--- NOTE | 2022-07-30 10:10 | P.DS ---
Providers Date of admission: 07/28/22 05:47 Expected date of discharge: 07/30/22 Attending physician: Zan Valadez Primary care physician: Stated None - Discharge Diagnosis(es) (1) Status post repeat low transverse section Current Visit: Yes Status: Acute Hospital Course: Patient presented for repeat low transverse . She underwent this procedure without Location. Her postoperative course was uneventful. She denies nausea, vomiting, chest pain, shortness of breath or any calf pain. Patient will be discharged home postoperative day #2 in stable condition to follow-up with Dr. Valadez in one week. Plan - Discharge Summary Discharge Rx Participant: No New Discharge Prescriptions: New Ibuprofen [Motrin] 600 mg PO Q6H #40 tab oxyCODONE HCL [OxyIR] 5 mg PO Q4HR PRN #18 tab PRN Reason: Pain Scale 4 - 6 No Action Pnv No.175/Iron Fum/Folic Acid [ Complete Tablet] 1 capsule PO DAILY Discharge Medication List Ibuprofen [Motrin] 600 mg PO Q6H #40 tab 07/28/22 [Rx] Pnv No.175/Iron Fum/Folic Acid [ Complete Tablet] 1 capsule PO DAILY 07/28/22 [History] oxyCODONE HCL [OxyIR] 5 mg PO Q4HR PRN #18 tab 07/28/22 [Rx] Follow up Appointment(s)/Referral(s): Zan Valadez MD [STAFF PHYSICIAN] - 09/07/22 9:45 am (Post Op Appointment at 1:30) Patient Instructions/Handouts: (DC) Discharge Disposition: HOME SELF-CARE
== END 2022-07-30 10:35 | disposition home or self-care (01) | DRG 540 ==
LOC: 4FBP 05:47
PROVIDERS: ADMIT Obstetrics & Gynecology; ATTEND Obstetrics & Gynecology
PROC: 10D00Z1 Extraction of Products of Conception, Low, Open Approach (ICD-10-PCS; principal; 2022-07-28 08:00)
DX: O34.211 Maternal care for low transverse scar from previous cesarean delivery (principal); Z14.8 Genetic carrier of other disease; Z37.0 Single live birth; Z3A.39 39 weeks gestation of pregnancy
CPT/HCPCS: 85025; 86850; 86900; 86901; 88307